=== PATIENT | male | born 2000 | race Caucasian/White ===

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

== ENCOUNTER 2019-06-24 10:49 | Emergency (ER) | payer BC, SELFPAY ==
[2019-06-24 10:51] VITALS: BP 116/64; PULSE 67; RESP 17; TEMP 36.7; O2SAT 96; BMI 27.5
--- NOTE | 2019-06-24 11:06 | EKG12_ITS ---
Test Reason : DIZZINESS Blood Pressure : / mmHG Vent. Rate : 054 BPM Atrial Rate : 054 BPM P-R Int : 134 ms QRS Dur : 094 ms QT Int : 436 ms P-R-T Axes : 005 087 018 degrees QTc Int : 413 ms Sinus bradycardia with sinus arrhythmia Incomplete right bundle branch block Septal infarct , age undetermined Abnormal ECG Confirmed by MEL ACEVEDO, JEIMY ([id number]), electronic news gathering editor ORI MADSEN ([id number]) on 06/27/2019 1:53:19 PM Referred By: ANDREW Confirmed By:JEIMY LEAL MD
[2019-06-24] MEDS: 0.9% Normal Saline 1,000 ML 1000 ML IV (11:11)
[2019-06-24 11:15] VITALS: BP 132/46; BP 134/46; BP 134/47; PULSE 55; PULSE 59
[2019-06-24 11:22] LABS: Absolute Lymphocyte Count 3.19 X10^3/uL (0.83-4.51); Absolute Neutrophil Count 2.7 X10^3/uL (2.0-7.7); Basophil# 0.05 X10^3/uL; Basophil% 0.7 % (0-1); Eosinophil# 0.08 X10^3/uL; Eosinophils% 1.2 % (0-5); Hematocrit 42.4 % (40-54); Hemoglobin 14.8 g/dL (13.0-16.5); Lymphocyte # 3.19 X10^3/ul (4.0); Lymphocyte % 47.7 % (19-41); Mean Corp Hgb Conc 34.9 g/dL (32-36); Mean Corpuscular Hgb 29.8 pg (27.0-32.0); Mean Corpuscular Volume 85.5 fL (80-94); Mean Platelet Vol. 9.1 fl (6.2-12.0); Monocyte# 0.69 X10^3/uL; Monocyte% 10.3 % (0-10); NRBC Flagged by Analyzer 0 % (0-5); Neutrophil # 2.67 X10^3/uL (2.7-7.7); Platelet Count 255 K/mm3 (150-450); RBC Distribution Width CV 11.6 % (11.6-14.6); RBC Distribution Width SD 35.9 fl (35.1-43.9); Red Blood Count 4.96 M/mm3 (4.6-6.2); White Blood Count 6.7 K/mm3 (4.4-11.0)
[2019-06-24 11:30] LABS: Anion Gap 7 (5-15); BUN 16 mg/dL (7-18); BUN/Creat Ratio 15.4 RATIO (10-20); Calcium,Total 9.2 mg/dL (8.5-10.1); Chloride 106 mmol/L (98-107); Creatinine, Serum 1.04 mg/dL (0.70-1.30); EST Glomerular Filtration Rate 97 mL/min (>60); Est Glom Filt Rate - Afr Amer 117 mL/min (>60); Estimated Creatinine Clearance 121.68 ml/min; Glucose 106 mg/dL (74-106); Potassium 3.8 mmol/L (3.5-5.1); Sodium Level 141 mmol/L (136-145)
--- NOTE | 2019-06-24 11:35 | RAD_ITS ---
STUDY: X-RAY CHEST REASON FOR EXAM: Male, 18 years old. Chest pain. TECHNIQUE: PA and lateral views. COMPARISON: None. FINDINGS: The lungs are clear and expanded. There is no demonstrated pleural abnormality. Normal size heart. Normal mediastinum and nicole. Normal visualized pulmonary arteries. Normal visualized aortic arch and descending thoracic aorta. Normal visualized thoracic spine. Normal visualized ribs, clavicles, and shoulders. There is no demonstrated abnormality of the visualized soft tissue structures of the upper abdomen. RAD/Chest PA and Lateral IMPRESSION: Normal x-ray examination of the chest. Electronically Signed: Shaun Spear MD at 12:37 EST , Service support ,
[2019-06-24 11:48] VITALS: BP 130/51; PULSE 56; RESP 16; O2SAT 99
--- NOTE | 2019-06-24 11:55 | ED.DCSUM_ITS ---
- ER Visit Summary Date of Service: 06/24/19 Chief Complaint: [Dizziness, syncope, chest pain] History of Present Illness: The patient is a 18 M [presents to the emergency department with multiple complaints that started this morning. Patient states that after waking he began feeling dizzy or lightheaded and developed tunnel vision. Patient felt very nauseated with this and went to the restroom and sat on the toilet because he thought he was in have diarrhea. Patient eventually laid his head against the sink and his girlfriend who was with him states that he may have passed out for 2 to 5 seconds. Patient denied any chest pain or palpitations or tachycardia at the time. Patient was sweaty at the time. Last night self-inflicted superficial cuts to the right lateral thigh because of anxiety. Patient denies feeling suicidal or homicidal currently. She has cut himself in the past to relieve stress. Patient does have a history of PSVT but states that the symptoms today were very different than what he is experienced with PSVT in the past. Patient is not on any medications for SVT. Patient not on medications for anxiety. Patient has not a scheduled appointment with his physician at the school next week and also has an appointment scheduled with a counselor.] Physical Examination: [HEENT-PERRLA, EOMI. Cranial nerves II through XII grossly intact. TMs clear. Mucous membranes moist. No adenopathy. Cardiovascular-regular rate and rhythm without murmur or ectopy Lungs-clear to auscultation, chest wall stable without crepitus or subcu emphysema Abdomen-normoactive bowel sounds, soft, nontender, no rebound or rigidity, no peritoneal signs. Neuro [id number] and heel esteves testing within normal limits, negative Romberg, negative pronator drift, fundi benign. Extremities-intact ?4, normal range of motion, normal pulses. Right thigh- patient has multiple superficial linear lacerations to the outer right thigh that are over 12 hours old. No active bleeding. No fat extruding.] Test Results: [EKG obtained arrival shows sinus rhythm with a ventricular rate of 54 bpm with an incomplete right bundle branch block. CBC with differential was normal. Chemistries normal. Chest x-ray was normal. Static vital signs were normal.] Emergency Department Course and Treatment: [Liter normal same fluid bolus. Patient received Adacel tetanus booster. I had a long discussion with patient and his mother who is here also. I suspect patient symptoms likely vasovagal. I also feel there is a component of anxiety and he has been under increased stress at school.] Treatment Plan: [To keep his counseling appointments and he will start on Vistaril as needed.] Disposition: [Discharged home in stable condition] Impression: [Vasovagal syncope Anxiety] This note was generated with [employer] dictation software. It may contain incorrect words, spelling, and punctuation that were not noted in review of the chart prior to signing ED Disposition - Plan for ED Patient: Referrals: Care Physician,No Primary [Primary Care Provider] -
--- NOTE | 2019-06-24 11:58 | ED.DEP ---
ED Disposition - Plan for ED Patient: Instructions: Panic Attack, SYNCOPE, Vasovagal Prescriptions: hydrOXYzine pamoate capsule [Vistaril] 25 mg PO TID PRN PRN #30 cap PRN Reason: Anxiety Prescription Printed Referrals: Care Physician,No Primary [Primary Care Provider] - 3-5 Days
[2019-06-24] MEDS: Diphth,Pertuss(Acell),Tet Vac 0.5 ML Vial IM (12:14)
[2019-06-24 12:17] VITALS: BP 130/51; PULSE 58; RESP 16; O2SAT 99
== END 2019-06-24 12:27 | disposition home or self-care (01) ==
PROVIDERS: Emergency Provider Emergency Medicine
DX: R55 Syncope and collapse (principal); F41.9 Anxiety disorder, unspecified; S71.111A Laceration without foreign body, right thigh, initial encounter; X78.9XXA Intentional self-harm by unspecified sharp object, initial encounter; Y93.9 Activity, unspecified; Y92.9 Unspecified place or not applicable; Y99.9 Unspecified external cause status; Z23 Encounter for immunization; F32.9 Major depressive disorder, single episode, unspecified; I45.10 Unspecified right bundle-branch block
CPT/HCPCS: 71046; 80048; 85025; 90471; 90715; 93005; 96360; 99285; J7030; A4216

== ENCOUNTER 2020-04-20 20:34 | Emergency (ER) | payer BC, SELFPAY ==
[2020-04-20 20:34] VITALS: BP 149/100; PULSE 77; RESP 16; TEMP 36.3
[2020-04-20 20:35] VITALS: BP 149/100; PULSE 77; RESP 16; TEMP 36.3; BMI 28.5
--- NOTE | 2020-04-20 20:43 | ED.VIS.HA ---
History of Present Illness Chief Complaint: Headache Informant: Patient Onset: Today Context: Sudden - 1800 Timing: Continuous Quality: Throbbing, Tightness Location: Bandlike sensation around his head Current Severity: Severe Maximum Severity: Severe Worsened by: Right and change in position Relieved by: Nothing Associated Symptoms: Nausea, Vomiting - Dry heaves, Photophobia. 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 He has history of headaches. Denies history of smoking, drug use or alcohol use. He reports photophobia and sonophobia. He denies rhinorrhea, congestion or postnasal drainage. No sore throat. Denies neck pain or neck stiffness. He denies cardiac respiratory symptoms. GI is positive for nausea and dry heaves otherwise negative. He has no neurologic symptoms. Prior similar symptoms: Yes Recent Illness/Hospitalization: No - Past Medical History (1) History of migraine headaches Status: Acute Past Medical History - Allergies and Home Meds Allergies/Adverse Reactions: Allergies No Known Allergies Allergy (Verified 06/24/19 10:51) Primary Care Physician: Care Physician,No Primary [Primary Care Provider] - Prior records reviewed: No Surgical History: no surgical history Lives: With Family Smoking Status: Never smoker Alcohol: None Drugs: None Review of Systems General: Denies: Chills, Fever, Malaise, Subjective, Sweats Eyes: Reports: - - Positive photophobia. Denies: Blurred Vision - bilaterally, Diplopia ENT: Reports: - - Positive for sonophobia. Denies: Left ear pain, Right ear pain, Rhinorrhea, Sore throat Cardiovascular: Denies: Chest pain, Palpitations Respiratory: Denies: Dyspnea, Cough, Dyspnea on exertion Gastrointestinal: Reports: Nausea, Vomiting. Denies: Abdominal pain, Diarrhea Musculoskeletal: Denies: Myalgias, Arthralgias, Neck pain, Back pain, Swelling, Extremity Pain, -, - Skin: Denies: Rash, Wounds Neurological: Reports: Headache. Denies: Weakness, Parasthesia, Numbness, -, - Hematologic: Denies: Easy bruising, Easy bleeding Physical Exam Vital Signs/Narrative: Vital Signs Temp Pulse Resp BP 04/20/20 20:35 97.4 F L 77 16 149/100 H 04/20/20 20:34 97.4 F L 77 16 149/100 H Inital Vital Signs reviewed: Yes General: Well nourished, Well developed Head: NC, AT, Tenderness. Negative for: Temporary Artery Tenderness, Vesicular Rash, Sinus Tenderness Eyes: Perrl, EOMI, - - There is no nystagmus. There is no papilledema noted on funduscopic exam.. Negative for: Pale conjunctiva, Scleral icterus ENT: Moist mucous membranes, No rhinorrhea, TM's clear Neck: Supple, No Lymphadenopathy, No JVD, Nontender, No Meningismus Cardiovascular: Regular rate, Regular rhythm, No murmurs, Normal S1, Normal S2 Respiratory: No distress, CTA bilaterally, Chest nontender Extremities: Nontender, No edema Skin: Normal color, No rash Neuro: Alert, Oriented x3, Cranial nerves II-XII grossly intact, Normal Strength, Normal Sensation, Normal DTR, Normal Gait Psychological: Normal affect Diagnostic/Tx/Re-eval - Medical Decision Making Presents with abrupt headache. Patient's symptoms are consistent with migraine headache. Will treat with IV Toradol, Reglan and Benadryl. Since neuro exam is nonfocal with no nuchal rigidity or meningeal findings CT was not obtained to evaluate for subarachnoid hemorrhage. Since there is no tenderness over the frontal, ethmoid or maxillary sinus doubt sinusitis especially since he states his headache does have a positional component. Patient was reassessed at 2138. Patient states headache is resolved. Patient be discharged home. ED Disposition - Plan for ED Patient: Disposition: Home or Assisted Living Diagnosis: Migraine headache without aura Instructions: ED, Migraine (Classical) Referrals: Care Physician,No Primary [Primary Care Provider] - [facility] [GROUP OF PHYSICIANS] - As Needed
[2020-04-20] MEDS: DiphenhydrAMINE 50 MG/ML Syringe 25 MG IV (20:59)
[2020-04-20] MEDS: Ketorolac 30 MG/ML Syringe 15 MG IV (21:01)
[2020-04-20] MEDS: Metoclopramide 10 MG/2 ML Vial IV (21:03)
[2020-04-20 22:10] VITALS: BP 137/64; PULSE 65; RESP 18; O2SAT 97
== END 2020-04-20 22:12 | disposition home or self-care (01) ==
PROVIDERS: Emergency Provider Emergency Medicine
DX: G43.009 Migraine without aura, not intractable, without status migrainosus (principal)
CPT/HCPCS: 96374; 96375; 99283; A4216